=== PATIENT | male | born 1960 | race Caucasian/White ===

== ENCOUNTER 2017-06-06 10:27 | Emergency (ER) | payer OTHER ==
[~2017-06-06] VITALS: Ht 175.3 cm; Wt 97.5 kg
[~2017-06-06 10:27] MED LIST: Amaryl4 MG PO; METF500C; Phentermine HCl30 MG PO; VENLAFAXINE H37.5 MG PO; [UNRECOGNIZED DRUG - REMARK]
[2017-06-06 11:01] LABS: BASOPHILS ABSOLUTE AUTO 0.05 K/mm3 (0.00-0.23); BASOPHILS PERCENT AUTO 1 % (0-2); EOSINOPHILS PERCENT AUTO 1 % (0-6); Hematocrit 49.8 % (37.0-53.0); Hemoglobin 18.3 g/dL (13.5-17.5); IMMATURE GRAN ABSOLUTE AUTO 0.02 K/mm3 (0.00-0.10); IMMATURE GRAN PERCENT AUTO 0 % (0-1); LYMPHOCYTES ABSOLUTE AUTO 2.27 K/mm3 (0.84-5.20); LYMPHOCYTES PERCENT AUTO 26 % (21-46); MONOCYTES ABSOLUTE AUTO 0.56 K/mm3 (0.16-1.47); MONOCYTES PERCENT AUTO 6 % (4-13); Mean Corpuscular HGB 30.8 pg (26.0-34.0); Mean Corpuscular HGB Conc 36.7 g/dL (31.5-36.5); Mean Corpuscular Volume 84 fL (80-100); Mean Platelet Volume 10.9 fL (9.1-12.4); NEUTROPHILS ABSOLUTE AUTO 5.75 K/mm3 (1.96-9.15); NEUTROPHILS PERCENT AUTO 66 % (41-73); Platelet Count 261 K/mm3 (150-400); RDW Coefficient Variation 12.3 % (11.7-14.2); Red Blood Cell Count 5.94 M/mm3 (4.30-5.90); White Blood Cell Count 8.75 K/mm3 (4.00-11.30)
[2017-06-06 11:06] LABS: Base Excess Venous -1.8 mmol/L; PCO2 Venous 25.8 mmHg (38-42); PO2 Venous 35.2 mmHg (38-42); pH Blood Venous 7.52 (7.34-7.37)
[2017-06-06 11:18] LABS: Alanine Aminotransfer (ALT/SGP 17 U/L (12-78); Albumin, Blood 3.7 g/dL (3.4-5.0); Albumin/Globulin Ratio 0.7 (0.8-1.8); Alk Phos 95 U/L (50-136); Anion Gap 16 mmol/L (6-16); Aspartate Aminotrans (AST/SGOT 34 U/L (12-37); Beta-hydroxybutyrate 10.1 mg/dL (0.2-2.8); Bilirubin, Total 0.9 mg/dL (0.1-1.0); Blood Urea Nitrogen 6 mg/dL (8-24); Bun/Creatinine Ratio 9.5 (12.0-20.0); CO2, Blood 19 mmol/L (21-32); Calcium, Blood 9.5 mg/dL (8.5-10.1); Chloride, Blood 98 mmol/L (98-108); Creatinine, Blood 0.63 mg/dL (0.60-1.20); Globulin, Blood 5.2 g/dL (2.2-4.0); Glomerular Filtration Rate >60 (60-); Glucose, Blood 395 mg/dL (70-99); Potassium, Blood 4.1 mmol/L (3.5-5.5); Sodium, Blood 133 mmol/L (136-145); Total Protein, Blood 8.9 g/dL (6.4-8.2)
[2017-10-05] MEDS ORDERED: TRAMADOL HCL E150 MG PO (09:42)
[2017-10-05] MEDS ORDERED: GABA300 PO (09:42)
[2017-10-05] MEDS ORDERED: DULO30 PO (09:43)
[2017-10-05] MEDS ORDERED: TRULICITY0.75 MG/0. INJ (09:44)
== END 2017-06-06 12:19 | disposition home or self-care (01) ==
LOC: ER 10:27
PROVIDERS: Emergency Medicine
DX: F41.9 Anxiety disorder, unspecified (principal); E11.65 Type 2 diabetes mellitus with hyperglycemia; Z79.84 Long term (current) use of oral hypoglycemic drugs; Z79.899 Other long term (current) drug therapy
CPT/HCPCS: 36415; 80053; 82010; 82803; 82947; 85025; 93005; 93010; 96361; 96374; 96375; 99283; J1815; J2060; J2405; J7030

== ENCOUNTER 2018-11-20 10:10 | Day surgery (SDC) | payer OTHER ==
[~2018-11-20] VITALS: Ht 175.3 cm; Wt 118.7 kg
[~2018-11-20 10:10] MED LIST changes: +DULO30 PO; +DULO60 PO; +GABA300 PO; +Novolin R100 UNIT/M SC; +PREG75 PO; +TRAM50 PO; +TRAMADOL HCL E150 MG PO; +TRULICITY0.75 MG/0. INJ
== END 2018-11-20 12:54 | disposition home or self-care (01) ==
LOC: ORSCSDS 10:10
PROVIDERS: Internal Medicine Gastroenterology
PROC: 0DBK8ZX Excision of Ascending Colon, Via Natural or Artificial Opening Endoscopic, Diagnostic (ICD-10-PCS; principal; 2018-11-20 11:30)
PROC: 0DBH8ZX Excision of Cecum, Via Natural or Artificial Opening Endoscopic, Diagnostic (ICD-10-PCS; principal; 2018-11-20 11:30)
DX: Z12.11 Encounter for screening for malignant neoplasm of colon (principal); D12.0 Benign neoplasm of cecum; K63.5 Polyp of colon; K57.30 Diverticulosis of large intestine without perforation or abscess without bleeding; K64.8 Other hemorrhoids; E11.9 Type 2 diabetes mellitus without complications; E66.01 Morbid (severe) obesity due to excess calories; Z68.38 Body mass index [BMI] 38.0-38.9, adult; Z87.891 Personal history of nicotine dependence; Z79.4 Long term (current) use of insulin; Z79.899 Other long term (current) drug therapy
CPT/HCPCS: 82947; 88305; J2704; J7120

== ENCOUNTER → 2021-10-07 | Outpatient (CLI) | payer OTHER | END | disposition home or self-care (01) | LOC: LAB SHORT 10:22 → LAB 10:22 | DX: E11.40 Type 2 diabetes mellitus with diabetic neuropathy, unspecified (principal) | CPT/HCPCS: 36415; 83036 ==

== ENCOUNTER → 2022-09-29 | Outpatient (CLI) | payer OTHER ==
[~2022-09-29] MED LIST changes: +Robaxin750 MG PO
[2022-09-29 17:16] LABS: Microalb/Creat Ratio UR, Rand 19.526 mg/g (0.000-30.000); Microalbumin, Random Urine 41.2 mg/L (0.000-20.000)
== END ==
LOC: LAB SHORT 14:02 → LAB 14:02
PROVIDERS: Family Medicine
DX: E11.40 Type 2 diabetes mellitus with diabetic neuropathy, unspecified (principal)
CPT/HCPCS: 82043; 82570

== ENCOUNTER 2022-10-07 20:04 | Emergency (ER) | payer OTHER ==
[~2022-10-07] VITALS: Ht 177.8 cm; Wt 113.4 kg
[~2022-10-07 20:04] MED LIST changes: -Robaxin750 MG PO
[2022-10-07 20:23] VITALS: BP 140/85
[2022-10-07] MEDS ORDERED: Robaxin750 MG PO (21:21)
== END 2022-10-07 22:04 | disposition home or self-care (01) ==
LOC: ER 20:04
DX: M79.652 Pain in left thigh (principal); E11.40 Type 2 diabetes mellitus with diabetic neuropathy, unspecified; W18.30XA Fall on same level, unspecified, initial encounter
CPT/HCPCS: 73502; 96372; 99283-25; J1885

== ENCOUNTER → 2022-12-15 | Outpatient (CLI) | payer OTHER ==
[~2022-12-15] MED LIST changes: +Robaxin750 MG PO
[2022-12-16 14:11] LABS: TSH 1.78 uIU/mL (0.450-4.500)
== END | disposition home or self-care (01) ==
LOC: LAB SHORT 12:47 → LAB 12:47
PROVIDERS: Family Medicine
DX: R00.0 Tachycardia, unspecified (principal); R61 Generalized hyperhidrosis
CPT/HCPCS: 84439; 84443

== ENCOUNTER → 2023-03-02 | Outpatient (CLI) | payer OTHER ==
[2023-03-04 23:07] LABS: HEMOGLOBIN A1C 7.5 % (4.8-5.6)
== END ==
LOC: LAB 16:30 → LAB SHORT 16:30
PROVIDERS: Family Medicine
DX: E11.9 Type 2 diabetes mellitus without complications (principal)
CPT/HCPCS: 83036

== ENCOUNTER 2024-07-30 12:53 | Inpatient (IN) | payer OTHER ==
[~2024-07-30] VITALS: Ht 175.3 cm; Wt 115.7 kg
[2024-07-30 13:31] LABS: BASOPHILS ABSOLUTE AUTO 0.04 K/mm3 (0.00-0.23); BASOPHILS PERCENT AUTO 1 % (0-2); EOSINOPHILS ABSOLUTE AUTO 0.08 K/mm3 (0.00-0.68); EOSINOPHILS PERCENT AUTO 1 % (0-6); Hematocrit 45.4 % (37.0-53.0); Hemoglobin 15.1 g/dL (13.5-17.5); IMMATURE GRAN ABSOLUTE AUTO 0.01 K/mm3 (0.00-0.10); IMMATURE GRAN PERCENT AUTO 0 % (0-1); LYMPHOCYTES ABSOLUTE AUTO 1.15 K/mm3 (0.84-5.20); LYMPHOCYTES PERCENT AUTO 17 % (21-46); MONOCYTES ABSOLUTE AUTO 0.53 K/mm3 (0.16-1.47); MONOCYTES PERCENT AUTO 8 % (4-13); Mean Corpuscular HGB 30.4 pg (26.0-34.0); Mean Corpuscular HGB Conc 33.3 g/dL (31.5-36.5); Mean Corpuscular Volume 91 fL (80-100); NEUTROPHILS ABSOLUTE AUTO 5.12 K/mm3 (1.96-9.15); NEUTROPHILS PERCENT AUTO 74 % (41-73); Platelet Count 178 K/mm3 (150-400); RDW Coefficient Variation 14.4 % (11.7-14.2); RDW Standard Deviation 48.1 fL (35.1-46.3); Red Blood Cell Count 4.97 M/mm3 (4.30-5.90); White Blood Cell Count 6.93 K/mm3 (4.00-11.30)
[2024-07-30 13:50] LABS: Albumin, Blood 2.8 g/dL (3.4-5.0); Albumin/Globulin Ratio 0.7 (0.8-1.8); Bilirubin, Total 0.5 mg/dL (0.1-1.0); Creatinine, Blood 1.23 mg/dL (0.60-1.20); Potassium, Blood 4.7 mmol/L (3.5-5.5); Total Protein, Blood 6.8 g/dL (6.4-8.2)
[2024-07-30 14:19] LABS: Influenza A, PCR NEGATIVE (NEGATIVE); Influenza B, PCR NEGATIVE (NEGATIVE); Resp Syncytial Virus, PCR NEGATIVE (NEGATIVE); SARS-Cov-2 (COVID-19) PCR, MMC NEGATIVE (NEGATIVE)
[2024-07-30] MEDS ORDERED: Furosemide 10 MG/ML 4ML Vial IV ONE (16:10)
[2024-07-30] MEDS ORDERED: FURO20 PO (16:40)
[2024-07-30] MEDS ORDERED: TraMADol HCl 50 MG Tab PO PRN (17:15)
[2024-07-30] MEDS ORDERED: JARDIANCE10 MG PO (17:55)
[2024-07-30] MEDS ORDERED: CARV3.125 PO (17:56)
[2024-07-30] MEDS ORDERED: INSULANPEN SC (17:57)
[2024-07-30] MEDS ORDERED: ALBU90OI INH (17:58)
[2024-07-30] MEDS ORDERED: GABA300 PO (17:59)
[2024-07-30 18:25] VITALS: BP 150/94
[2024-07-30 19:31] VITALS: BP 147/97
[2024-07-30] MEDS ORDERED: Methocarbamol 500 MG Tab PO SCH (21:00)
[2024-07-30] MEDS ORDERED: Pregabalin 75 MG Cap PO SCH (21:00)
[2024-07-30] MEDS ORDERED: PREG150 PO (21:38)
[2024-07-31 03:19] VITALS: BP 129/80
--- NOTE | 2024-07-31 04:46 | NUR ---
SUMMARY: PT A/OX4, CALLS APPROPRIATELY TO SPECIFY NEEDS AND IS PLEASANT AND COOPERATIVE W/CARE. HE'S UP W/SBA AND FWW TO VOID W/STRICT I&O'S FOR NEW ONSET CHF. PT BECOMES SOB W/EXERTION BUT RECOVERS AT REST AND RESP EFFORT IS IMPROVING W/IV DIURESIS. LS CLEAR AND DIM IN BASES AND PT IS ON 2L O2 VIA NC TO MAINTAIN SPO2>90%, RA IS BASELINE. HE RECEIVED ULTRAM PER REQUEST FOR BLE NEUROPATHY. TELEMETRY INTACT IN NSR W/1ST DEGREE BLOCK AND BBB AT 80'S-90'S BPM. NO ACUTE CHANGES, VSS/AFEBRILE. WILL REPORT TO DAY RN.
[2024-07-31 05:44] LABS: Bun/Creatinine Ratio 26.9 (12.0-20.0); Calcium, Blood 8.8 mg/dL (8.5-10.1); Creatinine, Blood 1.19 mg/dL (0.60-1.20); Magnesium, Blood 1.6 mg/dL (1.6-2.4); Potassium, Blood 4.2 mmol/L (3.5-5.5)
[2024-07-31 07:12] VITALS: BP 142/82
[2024-07-31] MEDS ORDERED: Insulin Human Lispro 100 Units/ML 3ML Syringe SC SCH (07:30)
[2024-07-31] MEDS ORDERED: Gabapentin 300 MG Cap PO SCH (09:00)
[2024-07-31] MEDS ORDERED: Carvedilol 3.125 MG Tab PO SCH (09:00)
[2024-07-31] MEDS ORDERED: Empagliflozin 10 MG TAB PO SCH (09:00)
[2024-07-31] MEDS ORDERED: Enoxaparin 40 MG/0.4 ML SYR SC SCH (09:00)
[2024-07-31] MEDS ORDERED: Furosemide 10 MG/ML 4ML Vial IV SCH ×2 (09:00)
[2024-07-31] MEDS ORDERED: Pregabalin 50 MG Capsule PO SCH (09:00)
[2024-07-31] MEDS ORDERED: DULoxetine HCL 60 MG Capsule DR PO SCH (09:00)
[2024-07-31 11:38] VITALS: BP 98/62
[2024-07-31 15:37] VITALS: BP 141/87
--- NOTE | 2024-07-31 16:43 | NUR ---
NO CHANGES IN PT STATUS
[2024-07-31 19:25] VITALS: BP 137/84
[2024-08-01 02:52] VITALS: BP 114/71
--- NOTE | 2024-08-01 04:31 | NUR ---
SHIFT SUMMARY: PT AOX4 IND IN THE ROOM CURRENTLY ON 2L OF O2. NO ACUTE OVERNIGHT EVENTS. PT TOLERATING MEDICATINS WELL, DENIES CP, ENDORSES SOB ON EXERTION BUT RECOVERS QUICKLY. SLEPT WELL THROUGH THE NIGHT WITH NO INCIDENTS. PT CALLS APPROPRIATELY AND IS ABLE TO MAKE NEEDS KNOWN. PT IN BED SLEEPING, BED IN LOWEST POSITION, CALL LIGHT IN REACH. CONTINUING CARE.
[2024-08-01 05:39] LABS: BASOPHILS ABSOLUTE AUTO 0.03 K/mm3 (0.00-0.23); BASOPHILS PERCENT AUTO 1 % (0-2); EOSINOPHILS ABSOLUTE AUTO 0.08 K/mm3 (0.00-0.68); EOSINOPHILS PERCENT AUTO 1 % (0-6); Hematocrit 40.4 % (37.0-53.0); Hemoglobin 13.3 g/dL (13.5-17.5); IMMATURE GRAN ABSOLUTE AUTO 0.01 K/mm3 (0.00-0.10); IMMATURE GRAN PERCENT AUTO 0 % (0-1); LYMPHOCYTES PERCENT AUTO 19 % (21-46); MONOCYTES ABSOLUTE AUTO 0.58 K/mm3 (0.16-1.47); MONOCYTES PERCENT AUTO 10 % (4-13); Mean Corpuscular HGB 30.1 pg (26.0-34.0); Mean Corpuscular HGB Conc 32.9 g/dL (31.5-36.5); Mean Corpuscular Volume 91 fL (80-100); Mean Platelet Volume 11.3 fL (9.1-12.4); NEUTROPHILS PERCENT AUTO 69 % (41-73); Platelet Count 153 K/mm3 (150-400); RDW Coefficient Variation 14.1 % (11.7-14.2); RDW Standard Deviation 47.8 fL (35.1-46.3); Red Blood Cell Count 4.42 M/mm3 (4.30-5.90)
[2024-08-01 06:19] LABS: Bun/Creatinine Ratio 23.1 (12.0-20.0); Calcium, Blood 8.7 mg/dL (8.5-10.1); Creatinine, Blood 1.34 mg/dL (0.60-1.20); Magnesium, Blood 1.6 mg/dL (1.6-2.4); Potassium, Blood 4.1 mmol/L (3.5-5.5)
[2024-08-01 07:23] VITALS: BP 123/72
[2024-08-01] MEDS ORDERED: Metoprolol Succinate 25 MG TABCR PO SCH (09:00)
[2024-08-01] MEDS ORDERED: Furosemide 10 MG/ML 4ML Vial IV SCH (09:00)
[2024-08-01 11:47] VITALS: BP 114/69
[2024-08-01 15:19] VITALS: BP 105/66
[2024-08-01 16:12] LABS: Creatinine, Blood 1.43 mg/dL (0.60-1.20); Potassium, Blood 4.1 mmol/L (3.5-5.5)
--- NOTE | 2024-08-01 17:12 | NUR ---
DISCHARGE NOTE PT D/C HOME AT 1700. PT AND PT'S PROVIDED W/ VERBAL AND WRITTEN INSTRUCTIONS AND REPORTED UNDERSTANDING. PT A&OX4, VSS, AMB W/ ASSIST, TOLERATING PO, VOIDING, AND DENIED PAIN. WOUND CARE/DRESSING CHANGE COMPLETED BY THIS RN. BELONGINGS WERE RETURNED. HARD SCRIPTS GIVEN. PT ESCOURTED OUT VIA W/C BY CECE ANDERSON.
--- NOTE | 2024-08-01 18:14 | NUR ---
SHIFT SUMMARY PT A&OX4, VSS, ON 1L O2 NC, AMB W/ ASSIST, TOLERATING PO, VOIDING, AND DENIED PAIN. PT WORKED W/ PHYSICAL THERAPY THIS SHIFT AND TOLERATED IT WELL, SEE THERAPY NOTE. PT TO BE NPO AFTER MIDNIGHT FOR STRESS TEST. CALL LIGHT WITHIN REACH AND PT ABLE TO MAKE NEEDS KNOWN.
[2024-08-01 20:15] VITALS: BP 146/91
[2024-08-02 00:30] VITALS: BP 123/73
[2024-08-02 03:45] VITALS: BP 137/87
[2024-08-02 06:37] LABS: BASOPHILS ABSOLUTE AUTO 0.03 K/mm3 (0.00-0.23); BASOPHILS PERCENT AUTO 1 % (0-2); EOSINOPHILS ABSOLUTE AUTO 0.07 K/mm3 (0.00-0.68); EOSINOPHILS PERCENT AUTO 1 % (0-6); Hematocrit 41.5 % (37.0-53.0); Hemoglobin 13.8 g/dL (13.5-17.5); IMMATURE GRAN ABSOLUTE AUTO 0.02 K/mm3 (0.00-0.10); IMMATURE GRAN PERCENT AUTO 0 % (0-1); LYMPHOCYTES ABSOLUTE AUTO 0.92 K/mm3 (0.84-5.20); LYMPHOCYTES PERCENT AUTO 15 % (21-46); MONOCYTES PERCENT AUTO 10 % (4-13); Mean Corpuscular HGB 30.4 pg (26.0-34.0); Mean Corpuscular HGB Conc 33.3 g/dL (31.5-36.5); Mean Corpuscular Volume 91 fL (80-100); Mean Platelet Volume 11.5 fL (9.1-12.4); NEUTROPHILS ABSOLUTE AUTO 4.42 K/mm3 (1.96-9.15); NEUTROPHILS PERCENT AUTO 73 % (41-73); Platelet Count 142 K/mm3 (150-400); RDW Coefficient Variation 14.2 % (11.7-14.2); RDW Standard Deviation 47.9 fL (35.1-46.3); Red Blood Cell Count 4.54 M/mm3 (4.30-5.90); White Blood Cell Count 6.06 K/mm3 (4.00-11.30)
[2024-08-02 06:52] LABS: Bun/Creatinine Ratio 23.2 (12.0-20.0); Calcium, Blood 8.7 mg/dL (8.5-10.1); Creatinine, Blood 1.25 mg/dL (0.60-1.20); Potassium, Blood 3.7 mmol/L (3.5-5.5)
[2024-08-02 07:33] VITALS: BP 122/71
[2024-08-02] MEDS ORDERED: Losartan Potassium 25 MG Tab PO SCH (09:00)
[2024-08-02] MEDS ORDERED: Spironolactone 12.5 MG TAB PO SCH (09:00)
[2024-08-02] MEDS ORDERED: Furosemide 10 MG/ML 4ML Vial IV SCH (09:00)
[2024-08-02 11:28] VITALS: BP 128/68
[2024-08-02 15:51] VITALS: BP 131/78
--- NOTE | 2024-08-02 19:35 | NUR ---
SHIFT SUMMARY PT A&OX4. PT ADMITTED DUE TO NEW ONSET OF CHF. PT REPORTS NO CHEST PAIN OR DISCOMFORT. PT IS STRICT I&O. PT AC CBG CHECK, NO INSULIN COVERAGE NEEDED. CONT PULSE OX ON. SPO2 99%. PT ON 1L OF O2 VIA N/C W EXTENSION CORD, THIS AM. THIS AFTERNOON, PT AGITATED W CORDS, SAID "FORGET ABOUT THIS." CALLED DR. FISHER, DR. FISHER REPORTED "CAN D/C" PT IS SBA WITH WALKER. PT HAD FIRST PART OF STRESS TEST COMPLETE TODAY, NUC MED REPORTED WILL HAVE SECOND PART TOMORROW AT 1330. NUC MED REPORTED NO CAFFEINE/CHOCOLATE AFTER 1900, CAN HAVE BREAKFAST, NPO AFTER 0900. PT ON TELE, NO TELE REPORTS NOTED. VSS. PT IN BED, BED IN LOWEST POSITION, CALL LIGHT IN REACH.
[2024-08-02 21:54] VITALS: BP 140/92
[2024-08-03 00:20] VITALS: BP 146/91
[2024-08-03 04:47] VITALS: BP 102/61
[2024-08-03 06:23] LABS: BASOPHILS ABSOLUTE AUTO 0.01 K/mm3 (0.00-0.23); BASOPHILS PERCENT AUTO 0 % (0-2); EOSINOPHILS ABSOLUTE AUTO 0.08 K/mm3 (0.00-0.68); EOSINOPHILS PERCENT AUTO 1 % (0-6); Hematocrit 42.7 % (37.0-53.0); Hemoglobin 14.2 g/dL (13.5-17.5); IMMATURE GRAN ABSOLUTE AUTO 0.01 K/mm3 (0.00-0.10); IMMATURE GRAN PERCENT AUTO 0 % (0-1); LYMPHOCYTES PERCENT AUTO 18 % (21-46); MONOCYTES ABSOLUTE AUTO 0.54 K/mm3 (0.16-1.47); MONOCYTES PERCENT AUTO 10 % (4-13); Mean Corpuscular HGB 30.1 pg (26.0-34.0); Mean Corpuscular HGB Conc 33.3 g/dL (31.5-36.5); Mean Corpuscular Volume 91 fL (80-100); Mean Platelet Volume 11.8 fL (9.1-12.4); NEUTROPHILS ABSOLUTE AUTO 3.92 K/mm3 (1.96-9.15); NEUTROPHILS PERCENT AUTO 71 % (41-73); Platelet Count 150 K/mm3 (150-400); RDW Coefficient Variation 13.9 % (11.7-14.2); RDW Standard Deviation 46.6 fL (35.1-46.3); Red Blood Cell Count 4.72 M/mm3 (4.30-5.90); White Blood Cell Count 5.56 K/mm3 (4.00-11.30)
--- NOTE | 2024-08-03 06:24 | NUR ---
Shift Summary No acute changes. No c/o chest pain or pressure. Plan for stress test part 2 today, pt has had no caffiene and will be NPO at 0900 as ordered. No c/o leg pain, +2 edema on both feet. On tele, no events. Strict I+O. Pt on RA, VSS.
[2024-08-03 06:54] LABS: Bun/Creatinine Ratio 24.6 (12.0-20.0); Calcium, Blood 8.8 mg/dL (8.5-10.1); Creatinine, Blood 1.3 mg/dL (0.60-1.20); Potassium, Blood 3.5 mmol/L (3.5-5.5)
[2024-08-03 07:50] VITALS: BP 105/71
[2024-08-03 11:19] VITALS: BP 130/80
[2024-08-03] MEDS ORDERED: Regadenoson 0.4 MG/5 ML SYRINGE ONE (13:24)
[2024-08-03] MEDS ORDERED: Caffeine Citrated 60 MG/3 ML Vial ONE (13:24)
--- NOTE | 2024-08-03 15:00 | NUR ---
NOTIFIED BY [employer] P[employer]ING SUPERVISOR ABOUT OCCASIONAL TRIGEMENIAL PACS NOTED ON PT'S TELE AT 0200, STARTED AROUND NOON, PT IS ASYMPTOMATIC, NOTIFIED DR DAY, SHE ADVISED PT TO CONTINUE STRESS TEST, NO NEW ORDERS AT THIS TIME.
[2024-08-03 15:42] VITALS: BP 111/69
--- NOTE | 2024-08-03 16:44 | NUR ---
SHIFT SUMMARY: PT AOX4, COOPERATIVE W/ STAFF AND CARE. ON TELE, NSR 80s, NOTED TRIGEMENIAL PACS OCCASIONALLY, SEE PREVIOUS NOTES FOR DETAILS VSS. STRESS TESTS DONE TODAY PT TOLERATED WELL. RA SATS >95%. 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 PT IS INDEPENDENT IN ROOM, USES WALKER AT BASELINE, BED IS AT LOWEST POSITION AND CALL LIGHT WITHIN REACH.
--- NOTE | 2024-08-03 18:04 | NUR ---
REVIEWED AND AGREE WITH ALL LICENSED TAX CONSULTANT DOCUMENTATION
--- NOTE | 2024-08-03 18:11 | NUR ---
EDUCATED PT ON THE USE OF UTILIZING THE URINAL TO MEASURE OUTPUT AND LETTING STAFF KNOW AND PT STATED 'I HAVE BAD DIARRHEA AND I CANNOT JUST STAND RIGHT BACK UP TO PEE IN THE URINAL TO MEASURE IT." EDUCATED THE IMPORTANCE FOR MEASURING HIS OUTPUT BUT PT WAS ADAMANT ABOUT HIS LOOSE STOOL.
[2024-08-03 19:23] VITALS: BP 120/90
[2024-08-04 05:07] VITALS: BP 128/85
--- NOTE | 2024-08-04 06:16 | NUR ---
Shift Summary No acute changes, VSS. No c/o of chest pain or pressure. Pt on tele, no events. Pt did use urinal t/o the night to track I+O. Pt states no loose stools this shift.
[2024-08-04 07:45] VITALS: BP 104/65
[2024-08-04 08:46] LABS: Albumin, Blood 2.8 g/dL (3.4-5.0); Anion Gap 9 mmol/L (3-11); Blood Urea Nitrogen 33 mg/dL (8-24); Bun/Creatinine Ratio 24.3 (12.0-20.0); CO2, Blood 29 mmol/L (21-32); Calcium, Blood 8.6 mg/dL (8.5-10.1); Chloride, Blood 104 mmol/L (98-108); Creatinine, Blood 1.36 mg/dL (0.60-1.20); Glomerular Filtration Rate 58 (60-); Glucose, Blood 132 mg/dL (70-99); Magnesium, Blood 1.7 mg/dL (1.6-2.4); Phosphorus, Blood 3.3 mg/dL (2.5-4.9); Potassium, Blood 3.7 mmol/L (3.5-5.5); Sodium, Blood 138 mmol/L (136-145)
[2024-08-04] MEDS ORDERED: Metoprolol Succinate 25 MG TABCR PO SCH (09:00)
[2024-08-04] MEDS ORDERED: Spironolactone 25 MG Tab PO SCH (09:00)
[2024-08-04 11:39] VITALS: BP 124/77
[2024-08-04] MEDS ORDERED: LOSA25 PO (11:51)
[2024-08-04] MEDS ORDERED: METO25ER PO (11:52)
[2024-08-04] MEDS ORDERED: SPIR25 PO ×2 (11:53→11:54)
--- NOTE | 2024-08-04 14:10 | NUR ---
DISCHARGE REVIEWED WITH PT BY DANIEL MELENDEZ. IV PULLED INTACT AND TELE REMOVED BY MATHIEU. PT WHELED TO DOOR AT 1400
== END 2024-08-04 14:00 | disposition home health service (06) | DRG 291 ==
LOC: ER 12:53 → MEDS 12:54
PROVIDERS: Internal Medicine; Nurse Practitioner Acute Care; Student in an Organized Health Care Education/Training Program; ADMIT Internal Medicine
DX: I50.21 Acute systolic (congestive) heart failure (principal); J96.01 Acute respiratory failure with hypoxia; I44.0 Atrioventricular block, first degree; E66.01 Morbid (severe) obesity due to excess calories; E11.42 Type 2 diabetes mellitus with diabetic polyneuropathy; G89.29 Other chronic pain; E11.22 Type 2 diabetes mellitus with diabetic chronic kidney disease; N18.2 Chronic kidney disease, stage 2 (mild); R19.7 Diarrhea, unspecified; Z85.820 Personal history of malignant melanoma of skin; Z98.890 Other specified postprocedural states; Z79.899 Other long term (current) drug therapy; Z87.891 Personal history of nicotine dependence; Z68.37 Body mass index [BMI] 37.0-37.9, adult; Z79.51 Long term (current) use of inhaled steroids; Z79.4 Long term (current) use of insulin
CPT/HCPCS: 0241U; 36415; 71046; 78452; 80048; 80053; 80069; 82947; 83735; 83880; 84484; 85025; 93005; 93010; 93017; 94760; 94762; 96372; 96374; 96376; 97162; 97165; 97530; 97535; 99285-25; A9270; A9500; C8929; G0378; J0706; J1650; J1938; J2785; Q9957

== ENCOUNTER 2024-09-27 02:21 | Day surgery (SDC) | payer OTHER ==
[~2024-09-27 02:21] MED LIST changes: +ALBU90OI INH; +CARV3.125 PO; +FURO20 PO; +INSULANPEN SC; +JARDIANCE10 MG PO; +LOSA25 PO; +METO25ER PO; +PREG150 PO; +SPIR25 PO
[2024-09-27] MEDS ORDERED: Lidocaine HCl 4% Cream 5 GM ONE (13:37)
== END 2024-09-27 23:00 | disposition home or self-care (01) ==
LOC: WOUND 02:21
DX: E11.40 Type 2 diabetes mellitus with diabetic neuropathy, unspecified (principal); I11.0 Hypertensive heart disease with heart failure; I50.9 Heart failure, unspecified; Z87.828 Personal history of other (healed) physical injury and trauma
CPT/HCPCS: A9270; G0463